=== PATIENT | female | born 1940 | race Caucasian/White ===

== ENCOUNTER 2018-12-17 17:29 | Inpatient (IN) | payer BC | END 2018-12-22 22:15 | disposition other institution (70) | LOC: TELE 12-18 01:23 → TELE-EAST 12-18 04:21 → ER 17:29 | DX: I25.110 Atherosclerotic heart disease of native coronary artery with unstable angina pectoris (principal); J44.9 Chronic obstructive pulmonary disease, unspecified; I10 Essential (primary) hypertension; E11.65 Type 2 diabetes mellitus with hyperglycemia; E11.51 Type 2 diabetes mellitus with diabetic peripheral angiopathy without gangrene ==

== ENCOUNTER 2019-05-10 17:57 | Emergency (ER) | payer BC ==
[~2019-05-10] VITALS: Ht 157.5 cm; Wt 59.0 kg
[~2019-05-10 17:57] MED LIST: GABA100C9 PO; GLIM2TAB33 PO; METF-372 PO
[2019-05-10 19:15] LABS: Basophils # (auto) 0.1 uL; Basophils % (auto) 1.1 % (0.0-2.0); Eosinophils # (auto) 0.8 uL; Eosinophils % (auto) 7.1 % (0.0-7.0); Hematocrit 36.2 % (36.0-46.0); Hemoglobin 12.1 g/dL (12.2-16.2); Lymphocytes # (auto) 2.1 uL; Lymphocytes % (auto) 20.3 % (10.0-50.0); Mean Corpuscular Hemoglobin 31.5 pg (28.0-32.0); Mean Corpuscular Hgb Conc. 33.4 g/dL (32.0-36.0); Mean Corpuscular Volume 94.3 fL (80.0-100.0); Monocytes # (auto) 0.7 uL; Monocytes % (auto) 6.2 % (0.0-12.0); Neutrophils # (auto) 6.9 uL; Neutrophils % (auto) 65.3 % (37.0-80.0); Platelet Count (auto) 316 10^3/uL (140-450); Red Blood Cells 3.84 10^6/uL (4.0-5.20); Red Cell Distribution Width 14.4 % (11.8-14.3); White Blood Cell 10.6 10^3/uL (4.4-10.8)
[2019-05-10 19:21] LABS: Albumin 3.2 g/dL (3.4-5.0); Anion Gap 9 (5-15); Blood Urea Nitrogen 24 mg/dL (7-18); Carbon Dioxide 28 mmol/L (21-32); Chloride 103 mmol/L (98-107); Glucose 135 mg/dL (74-106); Potassium 3.4 mmol/L (3.5-5.1); Sodium 140 mmol/L (136-145)
[2019-05-10 19:23] LABS: Alanine Aminotransferase 12 U/L (13-56); Aspartate Aminotransferase 12 U/L (15-37); BUN/Creatinine Ratio 39.3; GFR African American 122 mL/min; GFR Non-African American 101 mL/min
[2019-05-10 19:28] LABS: Alkaline Phosphatase 71 U/L (45-117); Bilirubin, Total 0.2 mg/dL (0.2-1.0); Total Protein 6.2 g/dL (6.4-8.2)
[2019-05-10 20:32] LABS: Urine Bacteria NONE SEEN /hpf (None Seen); Urine Blood Negative /uL (Negative); Urine Mucus FEW (None Seen); Urine Specific Gravity 1.039 (1.001-1.035); Urine WBC 11 /hpf (0 - 5)
[2019-05-10] MEDS ORDERED: NICOTINE 21MG/24 HR TOPICAL PATCH TD ONE (21:00)
[2019-05-10] MEDS ORDERED: SODIUM CHLORIDE 0.9% 500 ML IV ONE (21:45)
[2019-05-10 23:00] VITALS: BP 115/41
== END 2019-05-11 00:53 | disposition home or self-care (01) ==
LOC: EDBD 17:57 → ER 17:59
DX: N39.0 Urinary tract infection, site not specified (principal); R07.89 Other chest pain; F03.90 Unspecified dementia, unspecified severity, without behavioral disturbance, psychotic disturbance, mood disturbance, and anxiety; F41.9 Anxiety disorder, unspecified; F32.9 Major depressive disorder, single episode, unspecified; E11.9 Type 2 diabetes mellitus without complications; I10 Essential (primary) hypertension; I25.2 Old myocardial infarction; Z90.710 Acquired absence of both cervix and uterus; Z98.61 Coronary angioplasty status; Z88.2 Allergy status to sulfonamides; Z88.6 Allergy status to analgesic agent; Z79.899 Other long term (current) drug therapy
CPT/HCPCS: 36415; 70450; 80053; 81001; 83036; 83605; 84484; 85025; 87086; 93005; 96360; 99284; J7040

== ENCOUNTER 2019-05-16 13:45 | Inpatient (IN) | payer BC ==
[~2019-05-16] VITALS: Ht 162.6 cm; Wt 55.3 kg
[2019-05-16 14:06] LABS: Basophils # (auto) 0.2 uL; Basophils % (auto) 1.5 % (0.0-2.0); Eosinophils # (auto) 1.4 uL; Eosinophils % (auto) 13.1 % (0.0-7.0); Hematocrit 35.5 % (36.0-46.0); Hemoglobin 12.1 g/dL (12.2-16.2); Lymphocytes # (auto) 1.8 uL; Lymphocytes % (auto) 16.3 % (10.0-50.0); Mean Corpuscular Hemoglobin 31.9 pg (28.0-32.0); Mean Corpuscular Hgb Conc. 34.2 g/dL (32.0-36.0); Mean Corpuscular Volume 93.5 fL (80.0-100.0); Monocytes # (auto) 0.7 uL; Monocytes % (auto) 5.9 % (0.0-12.0); Neutrophils # (auto) 6.9 uL; Neutrophils % (auto) 63.2 % (37.0-80.0); Platelet Count (auto) 351 10^3/uL (140-450); Red Blood Cells 3.79 10^6/uL (4.0-5.20); Red Cell Distribution Width 14.1 % (11.8-14.3)
[2019-05-16 14:25] LABS: Albumin 3.3 g/dL (3.4-5.0); Anion Gap 8 (5-15); Calcium 9.2 mg/dL (8.5-10.1); Carbon Dioxide 27 mmol/L (21-32); Chloride 103 mmol/L (98-107); Glucose 118 mg/dL (74-106); Magnesium 1.5 mg/dL (1.6-2.6); Potassium 3.6 mmol/L (3.5-5.1); Sodium 138 mmol/L (136-145)
[2019-05-16 14:34] LABS: Alanine Aminotransferase 13 U/L (13-56); Alkaline Phosphatase 71 U/L (45-117); Aspartate Aminotransferase 13 U/L (15-37); BUN/Creatinine Ratio 31.8; Bilirubin, Total 0.5 mg/dL (0.2-1.0); Blood Urea Nitrogen 21 mg/dL (7-18); GFR African American 112 mL/min; GFR Non-African American 92 mL/min; Total Protein 6.2 g/dL (6.4-8.2)
[2019-05-16] MEDS ORDERED: ASPirin 81 mg TAB PO ONE (15:15)
[2019-05-16 15:32] LABS: Acetaminophen 13.9 ug/mL (10-30); Salicylate 7.3 mg/dL (2.8-20.0)
[2019-05-16] MEDS ORDERED: NICOTINE 21MG/24 HR TOPICAL PATCH TD ONE (16:45)
[2019-05-16] MEDS ORDERED: HYDROcodone-ACET 5/325MG TAB PO PRN (18:30)
[2019-05-16] MEDS ORDERED: LORazepam 2MG/ML-1ML VIAL IV PRN (18:30)
[2019-05-16] MEDS ORDERED: ACETAMINOPHEN 500 MG TAB PO PRN (18:30)
[2019-05-16] MEDS ORDERED: NITROGLYCERIN 0.4 MG SL TAB SL PRN (18:30)
[2019-05-16] MEDS ORDERED: DEXTROSE (50%) 50ML SYRG IV PRN (18:30)
[2019-05-16] MEDS ORDERED: ONDANSETRON HCL 4 MG/2 ML VIAL IV PRN (18:30)
[2019-05-16] MEDS ORDERED: NITROGLYCERIN 0.4MG/HR TOPICAL PATCH TD ONE (18:30)
[2019-05-16] MEDS ORDERED: MORPHINE SULF INJ 2 MG/ML SYRINGE 1ML IV PRN ×2 (18:30)
[2019-05-16] MEDS: MAGNESIUM SULFATE 1GM/100ML 100 ML IV SCH ×2 (20:22→22:30)
[2019-05-16 21:20] VITALS: BP 98/51
--- NOTE | 2019-05-16 21:21 | NUR ---
Telemetry admit from [facility] admitted to Telemetry unit after SBAR received. Patient oriented to Candido simpson RN, unit, room 276, bed A, and unit policies regarding patient care and visiting hours. Patient now on continuous telemetry monitoring, tele box #50 and telemetry reading on arrival to unit is SR 97. Patient VS taken, weighed by bedscale and encouraged to call if they need something. All questions and concerns addressed, patient verbalized understanding.
[2019-05-16] MEDS: METOPROLOL TARTRATE 25 MG TAB PO SCH (22:00)
[2019-05-16] MEDS: ACCU-CHEK COMFORT CURVE STRIP VI SCH (22:08)
[2019-05-16] MEDS: ATORVASTATIN 20 MG TAB PO SCH (22:30)
[2019-05-16] MEDS ORDERED: MAGNESIUM SULFATE 1GM/100ML 100 ML IV SCH (22:30)
[2019-05-16] MEDS: InsuLIN REG 1unit/0.01ml Soln (100units/ml) SC SCH (22:31)
[2019-05-16] MEDS ORDERED: traZODone HCL 50 MG TAB PO ONE (23:00)
--- NOTE | 2019-05-17 01:00 | NUR ---
Received Tele-psych report and recommendations. Patient moved to 285B sitter room.
[2019-05-17] MEDS ORDERED: INFLUENZA QUAD 2019-2020 0.5ml SYRG IM ONE (03:00)
[2019-05-17 05:39] LABS: Urine Bacteria FEW /hpf (None Seen); Urine Blood 1+ /uL (Negative); Urine Specific Gravity 1.008 (1.001-1.035); Urine WBC 10 /hpf (0 - 5)
[2019-05-17 05:44] VITALS: BP 114/47
[2019-05-17 05:59] LABS: Alcohol, Urine < 3.0 mg/dL (0-5); Amphetamine Screen, Urine NEGATIVE (NEGATIVE); Barbiturate Scree,Urine NEGATIVE (NEGATIVE); Benzodiazephine Screen, Urine NEGATIVE (NEGATIVE); Cannabinoid Screen, Urine NEGATIVE (NEGATIVE); Cocaine Screen, Urine NEGATIVE (NEGATIVE); Opiate Scree,Urine NEGATIVE (NEGATIVE); Phencyclidine Screen, Urine NEGATIVE (NEGATIVE)
[2019-05-17] MEDS: InsuLIN REG 1unit/0.01ml Soln (100units/ml) SC SCH ×4 (06:20→21:46)
[2019-05-17] MEDS: ACCU-CHEK COMFORT CURVE STRIP VI SCH ×4 (06:20→21:45)
[2019-05-17] MEDS ORDERED: TRAZ-181 PO (07:00)
[2019-05-17] MEDS ORDERED: CIPR-173 PO (07:00)
[2019-05-17] MEDS ORDERED: MEMA10TA PO (07:00)
[2019-05-17] MEDS ORDERED: ASPI81CH43 PO (07:00)
[2019-05-17] MEDS ORDERED: BUSP15TA60 PO (07:00)
[2019-05-17] MEDS ORDERED: CLOP75TA41 PO (07:00)
[2019-05-17] MEDS ORDERED: METO25TA62 PO (07:00)
[2019-05-17] MEDS ORDERED: ATOR40TA52 PO (07:00)
[2019-05-17 07:39] LABS: Basophils # (auto) 0.2 uL; Basophils % (auto) 2.1 % (0.0-2.0); Eosinophils # (auto) 1.3 uL; Eosinophils % (auto) 13.8 % (0.0-7.0); Hematocrit 33.8 % (36.0-46.0); Hemoglobin 11.4 g/dL (12.2-16.2); Lymphocytes # (auto) 1.2 uL; Lymphocytes % (auto) 12.4 % (10.0-50.0); Mean Corpuscular Hemoglobin 31.9 pg (28.0-32.0); Mean Corpuscular Hgb Conc. 33.7 g/dL (32.0-36.0); Mean Corpuscular Volume 94.6 fL (80.0-100.0); Monocytes # (auto) 0.6 uL; Neutrophils # (auto) 6.4 uL; Neutrophils % (auto) 65.7 % (37.0-80.0); Platelet Count (auto) 312 10^3/uL (140-450); Red Blood Cells 3.58 10^6/uL (4.0-5.20); White Blood Cell 9.7 10^3/uL (4.4-10.8)
[2019-05-17 07:53] LABS: Anion Gap 6 (5-15); BUN/Creatinine Ratio 43.2; Blood Urea Nitrogen 19 mg/dL (7-18); Calcium 8.1 mg/dL (8.5-10.1); Carbon Dioxide 29 mmol/L (21-32); Chloride 103 mmol/L (98-107); GFR African American 178 mL/min; GFR Non-African American 147 mL/min; Glucose 143 mg/dL (74-106); INR 0.97 (0.9-1.15); Partial Thromboplastin Time 24.9 sec (23.64-32.05); Sodium 138 mmol/L (136-145)
--- NOTE | 2019-05-17 07:55 | NUR ---
Opening Shift Note Assumed care of patient, asleep but easily aroused. No S/S of distress/SOB or pain. Instructed on POC and to call for assist PRN, will continue to monitor for changes Q1hr and PRN. Sitter at bedside.
[2019-05-17 08:57] VITALS: BP 129/50
[2019-05-17] MEDS: FAMOTIDINE 20 MG TAB PO SCH (09:33)
[2019-05-17] MEDS: ASPirin 81 mg TAB PO SCH (09:33)
[2019-05-17] MEDS: METOPROLOL TARTRATE 25 MG TAB PO SCH ×2 (10:00→21:46)
[2019-05-17] MEDS ORDERED: NITROGLYCERIN 0.4MG/HR TOPICAL PATCH TD SCH (10:00)
[2019-05-17 13:00] VITALS: BP 141/69
[2019-05-17] MEDS ORDERED: LORazepam 2MG/ML-1ML VIAL IV PRN ×2 (14:30→21:30)
--- NOTE | 2019-05-17 14:50 | NUR ---
MRI Cancelled As per Jose in MRI dept. MRI study cannot be done, patient have spinal stimulator electrodes, so procedure will be cancelled.
[2019-05-17 17:00] VITALS: BP 149/77
[2019-05-17] MEDS: LEVOFLOXACIN 500 MG TAB PO SCH (17:15)
--- NOTE | 2019-05-17 17:35 | NUR ---
Phone call from son Son called inquiring what is happening with his mother as she called him to come pick her up, stating that she is leaving the hospital because she is not doing any surgery. I explained to him that the plan is to transfer the patient to a higher level of care facility for further intervention. Also notified him that the recommendation is in for 5150 hold so we will keep her until she gets transferred to other facility.
--- NOTE | 2019-05-17 17:45 | NUR ---
Agitation Patient states she is going to get dressed and go home, she is not going to do any surgery at her age and she does not need to be in the hospital any longer. Explained to her the 5150 hold and that she still need medical clearance, so we can't allow her to go home. Patient got dressed and took up her personal belongings and began to walk out. [employer] called to the room and MD notified. Will follow up with PRN medication.
--- NOTE | 2019-05-17 17:55 | NUR ---
AMA to Smoke AMA form signed and placed in chart. Patient stated that she has been two days without smoking and the she just need to go get a cigarette, sitter took her downstairs in wheelchair. Will continue to monitor.
--- NOTE | 2019-05-17 18:41 | NUR ---
On Unit Patient returned to unit, no obvious distress at this time.
[2019-05-17] MEDS: SERTRALINE HCL 50 MG TAB PO SCH (18:45)
--- NOTE | 2019-05-17 20:13 | NUR ---
Opening Shift Note Assumed care of patient, awake and alert. No S/S of distress/SOB or pain. Sitter at bedside. Instructed on POC and to call for assist PRN, will continue to monitor for changes Q1hr and PRN.
[2019-05-17] MEDS: MUPIROCIN 2% OINT 15gm or 22gm EACHNOSTRI SCH (21:45)
[2019-05-17] MEDS: ATORVASTATIN 20 MG TAB PO SCH (21:45)
[2019-05-17 22:00] VITALS: BP 121/60
[2019-05-17 23:29] LABS: Folate (Folic Acid) 17.92 ng/mL (5.38-24)
[2019-05-18] VITALS (7 sets, daily range): BP systolic 129–154; BP diastolic 48–82
[2019-05-18] MEDS: ACCU-CHEK COMFORT CURVE STRIP VI SCH ×4 (07:04→22:54)
[2019-05-18] MEDS: InsuLIN REG 1unit/0.01ml Soln (100units/ml) SC SCH ×4 (07:04→22:53)
--- NOTE | 2019-05-18 07:30 | NUR ---
Opening Shift Note Assumed care of patient, awake and alert. No S/S of distress/SOB or pain. Instructed on POC and to call for assist PRN, will continue to monitor for changes Q1hr and PRN.
[2019-05-18] MEDS: ASPirin 81 mg TAB PO SCH (09:43)
[2019-05-18] MEDS: FAMOTIDINE 20 MG TAB PO SCH (09:44)
[2019-05-18] MEDS: METOPROLOL TARTRATE 25 MG TAB PO SCH ×2 (09:46→22:00)
[2019-05-18] MEDS: SERTRALINE HCL 50 MG TAB PO SCH (09:47)
[2019-05-18] MEDS: LEVOFLOXACIN 500 MG TAB PO SCH (09:47)
[2019-05-18] MEDS: LORazepam 0.5 MG TAB PO PRN ×2 (09:52→18:12)
--- NOTE | 2019-05-18 11:36 | NUR ---
FAXED TRANSFER PACKET TO [facility]
--- NOTE | 2019-05-18 13:00 | NUR ---
Received tele psych follow up report. I called the number to get a new copy of the report. The psych doctor determined that the patient no longer meets requirements to be on 5150. will inform the family.
[2019-05-18] MEDS: MUPIROCIN 2% OINT 15gm or 22gm EACHNOSTRI SCH ×2 (13:38→22:53)
--- NOTE | 2019-05-18 14:15 | NUR ---
confirmed patient's social security number with the patient for nalini peng.
--- NOTE | 2019-05-18 14:34 | NUR ---
spoke with the patient's son Sebastián. I informed him that his mother no longer meets criteria to be on 5150 hold and currently we are working on getting her to [facility] for her cardiac procedure.
--- NOTE | 2019-05-18 14:55 | NUR ---
assessment Patient is a 79 year old female who is alert and oriented. Prior to admission patient lived home on the property of her son and functioned independently. Per patient she will return home to her previous living arrangement on discharge. Patient informed me she has a cane and fww for home use. Patients PCP is Dr Acevedo. Patient informed me she has fallen at home due to weakness lately. Patient may benefit from home health for PT on discharge. I informed patient she will be evaluated by physical therapy prior to discharge. I informed patient she has a right to speak to a social media editor regarding all care. I informed patient she has a right to participate in any and all discharge planning. Patient does not have a POA and advanced directive. I have offered patient information on POA and advanced directives. I informed the patient the advantages and benefits of having an Advanced Directive. Patient verbalized understanding and agreed to discharge plan. Addendum: 05/18/19 at 1458 by Karol BALDWIN Amended: Links added.
--- NOTE | 2019-05-18 15:12 | NUR ---
shawnee: awaiting for [facility] at [place] [phone] to call me with shawnee since I left message on her answering machine
--- NOTE | 2019-05-18 15:42 | NUR ---
Spoke to pt's son and let him know that I have faxed to various hospitals and am waiting for an acceptance
--- NOTE | 2019-05-18 15:43 | NUR ---
Faxed transfer packet to [facility], [facility] , [facility] and [facility]. [facility] and [facility] have no beds, [facility] I had to leave message for in house cra to get back to me and [facility] may have bed. I spoke to Sandra at [facility] and she wanted transfer back agreement completed and faxed to her. I completed form and faxed to [phone].
--- NOTE | 2019-05-18 16:11 | NUR ---
[employer] auth for facility is [id number] and for [facility] is [id number]
--- NOTE | 2019-05-18 16:19 | NUR ---
[facility] IS ON WILL CALL
--- NOTE | 2019-05-18 16:21 | NUR ---
agreed to transfer. son is at bedside. patient agrees to stay and go through with the transfer. awaiting the report from the psychiatric doctor. the consult has been completed, but the report is still not available.
[2019-05-18] MEDS ORDERED: CYANOCOBALAMIN (B-12) 1000 MCG/1 ML VIAL IM ONE (19:30)
--- NOTE | 2019-05-18 19:30 | NUR ---
Opening Shift Note Assumed care of patient, awake and alert. No S/S of distress/SOB or pain. Sitter is present at bedside. Instructed on POC and to call for assist PRN, will continue to monitor for changes Q1hr and PRN.
[2019-05-18] MEDS: ATORVASTATIN 20 MG TAB PO SCH (22:53)
[2019-05-19 05:00] VITALS: BP 98/56
[2019-05-19] MEDS: InsuLIN REG 1unit/0.01ml Soln (100units/ml) SC SCH ×3 (06:44→17:55)
[2019-05-19] MEDS: ACCU-CHEK COMFORT CURVE STRIP VI SCH ×3 (06:45→17:55)
--- NOTE | 2019-05-19 06:50 | NUR ---
ASSESSMENT The patient reports that she is having a mild headache and is also feeling anxious. Will treat with PRN medications.
[2019-05-19] MEDS: LORazepam 0.5 MG TAB PO PRN ×3 (06:55→19:38)
--- NOTE | 2019-05-19 07:30 | NUR ---
Opening Shift Note Assumed care of patient, found sleeping while doing morning rounds. Sitter at bedside. No S/S of distress/SOB or pain. Instructed on POC and to call for assist PRN, will continue to monitor for changes Q1hr and PRN.
[2019-05-19 08:00] VITALS: BP 109/35
[2019-05-19 09:00] VITALS: BP 109/95
[2019-05-19] MEDS: MUPIROCIN 2% OINT 15gm or 22gm EACHNOSTRI SCH (09:28)
[2019-05-19] MEDS: ASPirin 81 mg TAB PO SCH (09:29)
[2019-05-19] MEDS: METOPROLOL TARTRATE 25 MG TAB PO SCH (09:29)
[2019-05-19] MEDS: LEVOFLOXACIN 500 MG TAB PO SCH (09:29)
[2019-05-19] MEDS: FAMOTIDINE 20 MG TAB PO SCH (09:30)
[2019-05-19] MEDS: SERTRALINE HCL 50 MG TAB PO SCH (09:30)
[2019-05-19] MEDS ORDERED: CYANOCOBALAMIN 500 MCG TAB PO SCH (10:00)
[2019-05-19 13:30] VITALS: BP 120/50
[2019-05-19 17:00] VITALS: BP 140/55
--- NOTE | 2019-05-19 19:38 | NUR ---
Pt being trans to another hosp Order obtained for transfer of [facility] to [facility]. Report called/given to [facility]. Report given to [facility] transport team. Medication reconciliation form completed and copy given to patient. Transported via [facility] along with copied chart and imaging films/disk and all personal belongings. No distress noted on time of departure. Family notified of destination and room number, verbalized understanding. NOTE: Nurse notified to contact the son when the patient gets there.
== END 2019-05-19 18:51 | disposition short-term general hospital (02) | DRG 303 ==
LOC: EDBD 13:45 → ER 13:47 → TELE 13:48 → TELE-WESTW 20:27
PROVIDERS: ADMIT Nurse Practitioner Acute Care; ATTEND Internal Medicine
DX: I25.10 Atherosclerotic heart disease of native coronary artery without angina pectoris (principal); N39.0 Urinary tract infection, site not specified; R45.851 Suicidal ideations; F41.8 Other specified anxiety disorders; G89.29 Other chronic pain; F32.9 Major depressive disorder, single episode, unspecified; F17.200 Nicotine dependence, unspecified, uncomplicated; E83.42 Hypomagnesemia; I10 Essential (primary) hypertension; J44.9 Chronic obstructive pulmonary disease, unspecified; M41.9 Scoliosis, unspecified; R45.850 Homicidal ideations; Z79.82 Long term (current) use of aspirin; Z79.84 Long term (current) use of oral hypoglycemic drugs; Z79.899 Other long term (current) drug therapy; Z80.0 Family history of malignant neoplasm of digestive organs; Z83.3 Family history of diabetes mellitus; Z90.710 Acquired absence of both cervix and uterus; Z88.5 Allergy status to narcotic agent; M54.9 Dorsalgia, unspecified; E11.51 Type 2 diabetes mellitus with diabetic peripheral angiopathy without gangrene; F41.0 Panic disorder [episodic paroxysmal anxiety]; R07.89 Other chest pain
CPT/HCPCS: 36415; 71045; 80048; 80053; 80307; 80329; 81001; 82607; 82746; 82962; 83036; 83735; 83880; 84443; 84484; 85025; 85610; 85730; 86141; 87081; 93005; 93306; 94761; 97163; G0378; J1815

== ENCOUNTER 2019-12-25 19:46 | Inpatient (IN) | payer BC ==
[~2019-12-25] VITALS: Ht 152.4 cm; Wt 59.6 kg
[~2019-12-25 19:46] MED LIST changes: +ASPI81CH43 PO; +ATOR40TA52 PO; +BUSP15TA60 PO; +CIPR-173 PO; +CLOP75TA41 PO; -GABA100C9 PO; -GLIM2TAB33 PO; +MEMA10TA PO; +METO25TA93 PO; +TRAZ-181 PO
[2019-12-25 20:32] LABS: Basophils # (auto) 0.1 10 ^3/uL (0-0.2); Basophils % (auto) 1.3 % (0.0-2.0); Eosinophils # (auto) 0.4 10 ^3/uL (0-0.8); Lymphocytes # (auto) 1.5 10 ^3/uL (0.4-5.4); Neutrophils # (auto) 5.2 10 ^3/uL (1.6-8.6)
[2019-12-25 20:34] LABS: Eosinophils % (auto) 4.8 % (0.0-7.0); Hematocrit 32.4 % (36.0-46.0); Hemoglobin 10.5 g/dL (12.2-16.2); Lymphocytes % (auto) 18.9 % (10.0-50.0); Mean Corpuscular Hemoglobin 25.7 pg (28.0-32.0); Mean Corpuscular Hgb Conc. 32.3 g/dL (32.0-36.0); Mean Corpuscular Volume 79.5 fL (80.0-100.0); Monocytes # (auto) 0.7 10 ^3/uL (0-1.3); Monocytes % (auto) 9.3 % (0.0-12.0); Neutrophils % (auto) 65.7 % (37.0-80.0); Nucleated Red Blood Cells % 0.1 %; Platelet Count (auto) 356 10^3/uL (140-450); Red Blood Cells 4.08 10^6/uL (4.0-5.20); Red Cell Distribution Width 16.9 % (11.8-14.3)
[2019-12-25 20:44] LABS: INR 1.06 (0.9-1.15); Partial Thromboplastin Time 24.3 sec (23.64-32.05)
[2019-12-25 20:49] LABS: Albumin 2.9 g/dL (3.4-5.0); Anion Gap 7 (5-15); Blood Urea Nitrogen 24 mg/dL (7-18); Calcium 8.4 mg/dL (8.5-10.1); Carbon Dioxide 27 mmol/L (21-32); Chloride 102 mmol/L (98-107); Glucose 163 mg/dL (74-106); Magnesium 2.1 mg/dL (1.6-2.6); Potassium 3.9 mmol/L (3.5-5.1); Sodium 136 mmol/L (136-145)
[2019-12-25 20:54] LABS: Alanine Aminotransferase 19 U/L (13-56); Alkaline Phosphatase 99 U/L (45-117); Aspartate Aminotransferase 15 U/L (15-37); BUN/Creatinine Ratio 35.3; Bilirubin, Total 0.4 mg/dL (0.2-1.0); GFR African American 108 mL/min; GFR Non-African American 89 mL/min; Total Protein 5.9 g/dL (6.4-8.2)
[2019-12-25] MEDS ORDERED: ONDANSETRON HCL 4 MG/2 ML VIAL IV PRN (21:30)
[2019-12-25] MEDS ORDERED: cefTRIAXone 1GM/50ML D5W 50 ML IV ONE (21:30)
[2019-12-25 21:32] LABS: Urine Bacteria FEW /hpf (None Seen); Urine Blood 1+ /uL (Negative); Urine Mucus FEW (None Seen); Urine Specific Gravity 1.027 (1.001-1.035); Urine WBC 62 /hpf (0 - 5); Urine WBC Clumps PRESENT /hpf (None Seen)
[2019-12-25] MEDS ORDERED: ATORVASTATIN 20 MG TAB PO SCH (22:00)
[2019-12-25] MEDS ORDERED: TEMAZEPAM 15 MG CAP PO PRN (22:00)
[2019-12-25] MEDS: SODIUM CHLORIDE 0.9% 1,000 ML IV SCH (22:21)
[2019-12-25] MEDS: ENOXAPARIN SOD 40 MG/0.4 ML SYRINGE SC SCH (22:21)
[2019-12-25] MEDS: MEMANTINE HCL 5 MG TAB PO SCH (22:22)
[2019-12-25] MEDS: FAMOTIDINE 20 MG TAB PO SCH (22:22)
[2019-12-25 22:50] VITALS: BP 114/56
[2019-12-26] VITALS (7 sets, daily range): BP systolic 101–136; BP diastolic 50–68
[2019-12-26] MEDS ORDERED: LOPERAMIDE HCL 2 MG CAP PO PRN (00:30)
[2019-12-26] MEDS ORDERED: DONE5TAB11 PO (08:29)
[2019-12-26] MEDS ORDERED: RISP0.5T45 PO (08:29)
[2019-12-26 08:59] LABS: Basophils # (auto) 0.1 10 ^3/uL (0-0.2); Eosinophils # (auto) 0.4 10 ^3/uL (0-0.8); Eosinophils % (auto) 5.4 % (0.0-7.0); Hemoglobin 10.7 g/dL (12.2-16.2); Lymphocytes # (auto) 1.1 10 ^3/uL (0.4-5.4)
[2019-12-26 09:03] LABS: Basophils % (auto) 1.3 % (0.0-2.0); Hematocrit 32.8 % (36.0-46.0); Lymphocytes % (auto) 14.1 % (10.0-50.0); Mean Corpuscular Hemoglobin 25.8 pg (28.0-32.0); Mean Corpuscular Hgb Conc. 32.5 g/dL (32.0-36.0); Mean Corpuscular Volume 79.5 fL (80.0-100.0); Monocytes # (auto) 0.6 10 ^3/uL (0-1.3); Neutrophils # (auto) 5.3 10 ^3/uL (1.6-8.6); Neutrophils % (auto) 71.2 % (37.0-80.0); Nucleated Red Blood Cells % 0.1 %; Platelet Count (auto) 351 10^3/uL (140-450); Red Blood Cells 4.13 10^6/uL (4.0-5.20); Red Cell Distribution Width 16.5 % (11.8-14.3); White Blood Cell 7.5 10^3/uL (4.4-10.8)
[2019-12-26 09:16] LABS: BUN/Creatinine Ratio 33.3; Calcium 8.2 mg/dL (8.5-10.1); Potassium 3.8 mmol/L (3.5-5.1)
[2019-12-26] MEDS ORDERED: ASPirin 81 mg TAB PO SCH (10:00)
[2019-12-26] MEDS ORDERED: CLOPIDOGREL BISULFATE 75 MG TAB PO SCH (10:00)
[2019-12-26] MEDS: cefTRIAXone 1GM/50ML D5W 50 ML IV SCH (10:56)
[2019-12-26] MEDS: FAMOTIDINE 20 MG TAB PO SCH (10:57)
[2019-12-26] MEDS: MEMANTINE HCL 5 MG TAB PO SCH ×2 (10:58→22:00)
[2019-12-26] MEDS: SODIUM CHLORIDE 0.9% 1,000 ML IV SCH (11:01)
[2019-12-26] MEDS ORDERED: RISP0.5T12 PO (15:20)
[2019-12-26] MEDS ORDERED: BUSP30TA11 PO (15:20)
[2019-12-26] MEDS ORDERED: TRAZ100T3 PO (15:20)
[2019-12-26] MEDS ORDERED: MET25T PO (15:20)
[2019-12-26] MEDS ORDERED: traZODone HCL 50 MG TAB PO PRN (15:30)
[2019-12-26] MEDS: ENOXAPARIN SOD 40 MG/0.4 ML SYRINGE SC SCH (17:11)
[2019-12-26] MEDS: NICOTINE 14 MG/24HR TOPICAL PATCH TD SCH (17:11)
[2019-12-26] MEDS: RISPERIDONE 0.5 MG PO SCH (22:00)
[2019-12-26] MEDS ORDERED: DONEPEZIL HYDROCHLORIDE 5 MG TAB PO SCH (22:00)
[2019-12-26] MEDS: busPIRone HCL 10 MG TAB PO SCH (22:00)
[2019-12-26] MEDS: ASPirin 81 mg TAB PO SCH (22:00)
[2019-12-26] MEDS ORDERED: MEMANTINE HYDROCHLORIDE PO SCH (22:00)
[2019-12-27] MEDS: SODIUM CHLORIDE 0.9% 1,000 ML IV SCH ×2 (00:10→13:30)
[2019-12-27] MEDS: ACETAMINOPHEN 325 MG TAB PO PRN (04:18)
[2019-12-27 05:00] VITALS: BP 124/41
[2019-12-27 06:06] LABS: Basophils # (auto) 0.1 10 ^3/uL (0-0.2); Hemoglobin 10.8 g/dL (12.2-16.2); Lymphocytes # (auto) 0.9 10 ^3/uL (0.4-5.4); Mean Corpuscular Hgb Conc. 32.3 g/dL (32.0-36.0); Monocytes # (auto) 0.8 10 ^3/uL (0-1.3); Monocytes % (auto) 12.2 % (0.0-12.0); White Blood Cell 6.7 10^3/uL (4.4-10.8)
[2019-12-27 06:08] LABS: Basophils % (auto) 1.3 % (0.0-2.0); Eosinophils # (auto) 0.4 10 ^3/uL (0-0.8); Eosinophils % (auto) 5.7 % (0.0-7.0); Hematocrit 33.4 % (36.0-46.0); Lymphocytes % (auto) 13.3 % (10.0-50.0); Mean Corpuscular Hemoglobin 26.3 pg (28.0-32.0); Mean Corpuscular Volume 81.5 fL (80.0-100.0); Neutrophils # (auto) 4.5 10 ^3/uL (1.6-8.6); Neutrophils % (auto) 67.5 % (37.0-80.0); Platelet Count (auto) 315 10^3/uL (140-450); Red Cell Distribution Width 16.6 % (11.8-14.3)
[2019-12-27 06:16] LABS: Potassium 3.6 mmol/L (3.5-5.1)
[2019-12-27 06:27] LABS: BUN/Creatinine Ratio 34.1; Calcium 8.1 mg/dL (8.5-10.1); Magnesium 2.3 mg/dL (1.6-2.6)
[2019-12-27] MEDS: busPIRone HCL 10 MG TAB PO SCH ×3 (06:28→21:36)
[2019-12-27 09:00] VITALS: BP_SYST 121; BP_SYST 127; BP_DIAS 52; BP_DIAS 83
[2019-12-27] MEDS: cefTRIAXone 1GM/50ML D5W 50 ML IV SCH (09:44)
[2019-12-27] MEDS: MEMANTINE HCL 5 MG TAB PO SCH (09:46)
[2019-12-27] MEDS: FAMOTIDINE 20 MG TAB PO SCH (09:46)
[2019-12-27] MEDS: ASPirin 81 mg TAB PO SCH ×2 (09:46→21:36)
[2019-12-27] MEDS: NICOTINE 14 MG/24HR TOPICAL PATCH TD SCH (09:46)
[2019-12-27] MEDS: METOPROLOL TARTRATE 25 MG TAB PO SCH (09:48)
[2019-12-27] MEDS: ATORVASTATIN 20 MG TAB PO SCH (09:48)
[2019-12-27] MEDS: CLOPIDOGREL BISULFATE 75 MG TAB PO SCH (09:48)
[2019-12-27] MEDS: RISPERIDONE 0.5 MG PO SCH ×2 (10:00→21:43)
[2019-12-27 13:00] VITALS: BP 132/46
[2019-12-27 16:42] VITALS: BP 130/46
[2019-12-27] MEDS: ENOXAPARIN SOD 40 MG/0.4 ML SYRINGE SC SCH (18:45)
[2019-12-27 22:00] VITALS: BP 128/60
[2019-12-28] MEDS: SODIUM CHLORIDE 0.9% 1,000 ML IV SCH ×2 (02:50→16:10)
[2019-12-28 05:00] VITALS: BP 132/58
[2019-12-28] MEDS: busPIRone HCL 10 MG TAB PO SCH ×2 (05:54→14:30)
[2019-12-28 09:00] VITALS: BP 132/59
[2019-12-28] MEDS: ATORVASTATIN 20 MG TAB PO SCH (09:38)
[2019-12-28] MEDS: cefTRIAXone 1GM/50ML D5W 50 ML IV SCH (09:38)
[2019-12-28] MEDS: MEMANTINE HCL 5 MG TAB PO SCH (09:39)
[2019-12-28] MEDS: FAMOTIDINE 20 MG TAB PO SCH (09:39)
[2019-12-28] MEDS: ASPirin 81 mg TAB PO SCH (09:40)
[2019-12-28] MEDS: METOPROLOL TARTRATE 25 MG TAB PO SCH (09:40)
[2019-12-28] MEDS: CLOPIDOGREL BISULFATE 75 MG TAB PO SCH (09:40)
[2019-12-28] MEDS: NICOTINE 14 MG/24HR TOPICAL PATCH TD SCH (09:46)
[2019-12-28] MEDS: RISPERIDONE 0.5 MG PO SCH (10:00)
[2019-12-28 13:00] VITALS: BP 144/75
[2019-12-28] MEDS: ACETAMINOPHEN 325 MG TAB PO PRN (13:00)
[2019-12-28 13:50] VITALS: BP 144/75
[2019-12-28 16:37] VITALS: BP 111/49
== END 2019-12-28 17:10 | disposition home health service (06) | DRG 689 ==
LOC: EDBD 19:46 → ER 19:46 → WEST WING 19:47 → OVERFLOW 19:47 → UNDOADMIN 19:47 → WEST WING 21:59 → OVERFLOW 21:59
PROVIDERS: ADMIT Nurse Practitioner; ATTEND Internal Medicine
DX: N39.0 Urinary tract infection, site not specified (principal); G93.41 Metabolic encephalopathy; G30.9 Alzheimer's disease, unspecified; I10 Essential (primary) hypertension; E78.5 Hyperlipidemia, unspecified; F02.80 Dementia in other diseases classified elsewhere, unspecified severity, without behavioral disturbance, psychotic disturbance, mood disturbance, and anxiety; F41.9 Anxiety disorder, unspecified; E11.51 Type 2 diabetes mellitus with diabetic peripheral angiopathy without gangrene; F17.210 Nicotine dependence, cigarettes, uncomplicated; I25.10 Atherosclerotic heart disease of native coronary artery without angina pectoris; J44.9 Chronic obstructive pulmonary disease, unspecified; Z79.82 Long term (current) use of aspirin; Z80.0 Family history of malignant neoplasm of digestive organs; Z82.49 Family history of ischemic heart disease and other diseases of the circulatory system; Z83.3 Family history of diabetes mellitus; Z90.710 Acquired absence of both cervix and uterus; Z71.6 Tobacco abuse counseling
CPT/HCPCS: 36415; 70450; 71045; 80048; 80053; 80320; 81001; 82607; 83735; 84484; 85025; 85610; 85730; 87040; 87086; 93005; 96374; 99291; G0378; J0696

== ENCOUNTER 2020-02-22 14:00 | Inpatient (IN) | payer BC ==
[~2020-02-22] VITALS: Ht 157.5 cm; Wt 58.1 kg
[~2020-02-22 14:00] MED LIST changes: -BUSP15TA60 PO; +BUSP30TA11 PO; -CIPR-173 PO; -MEMA10TA PO; +MET25T PO; -METO25TA93 PO; +RISP0.5T12 PO; -TRAZ-181 PO; +TRAZ100T3 PO
[2020-02-22] MEDS ORDERED: SODIUM CHLORIDE 0.9% 500 ML IV ONE (14:08)
[2020-02-22 14:49] LABS: Basophils # (auto) 0.1 10 ^3/uL (0-0.2); Eosinophils # (auto) 0.2 10 ^3/uL (0-0.8); Lymphocytes # (auto) 1.6 10 ^3/uL (0.4-5.4); Monocytes # (auto) 0.7 10 ^3/uL (0-1.3); Nucleated Red Blood Cells % 0.1 %
[2020-02-22 14:50] LABS: Basophils % (auto) 1.1 % (0.0-2.0); Eosinophils % (auto) 2.4 % (0.0-7.0); Hemoglobin 10.8 g/dL (12.2-16.2); Lymphocytes % (auto) 18.1 % (10.0-50.0); Mean Corpuscular Hemoglobin 26.3 pg (28.0-32.0); Mean Corpuscular Hgb Conc. 32.7 g/dL (32.0-36.0); Mean Corpuscular Volume 80.5 fL (80.0-100.0); Monocytes % (auto) 8.4 % (0.0-12.0); Platelet Count (auto) 332 10^3/uL (140-450); Red Cell Distribution Width 17.3 % (11.8-14.3); White Blood Cell 8.6 10^3/uL (4.4-10.8)
[2020-02-22 15:09] LABS: Anion Gap 9 (5-15); BUN/Creatinine Ratio 30.3; Blood Urea Nitrogen 23 mg/dL (7-18); Carbon Dioxide 25 mmol/L (21-32); Chloride 104 mmol/L (98-107); GFR African American 95 mL/min; GFR Non-African American 78 mL/min; Glucose 148 mg/dL (74-106); Potassium 3.6 mmol/L (3.5-5.1); Sodium 138 mmol/L (136-145)
[2020-02-22 15:14] LABS: Alanine Aminotransferase 34 U/L (13-56); Alkaline Phosphatase 154 U/L (45-117); Aspartate Aminotransferase 22 U/L (15-37); Bilirubin, Total 0.6 mg/dL (0.2-1.0); Total Protein 6.6 g/dL (6.4-8.2)
[2020-02-22] MEDS ORDERED: DEXTROSE (50%) 50ML SYRG IV PRN (16:15)
[2020-02-22] MEDS ORDERED: ONDANSETRON HCL 4 MG/2 ML VIAL IV PRN (16:15)
[2020-02-22] MEDS ORDERED: cefTRIAXone 1GM/50ML D5W 50 ML IV ONE (16:45)
[2020-02-22] MEDS ORDERED: DOCUSATE SOD 100 MG CAP PO PRN (16:45)
--- NOTE | 2020-02-22 16:45 | NUR ---
MS admit from ER [facility] admitted to tele/MS after SBAR received. Patient oriented to ELI YOON, primary RN, unit, room, bed, and unit policies regarding patient care and visiting hours. Patient weighed by bedscale and encouraged to call if they need something. All questions and concerns addressed, patient verbalized understanding. Note:
[2020-02-22] MEDS: ACCU-CHEK COMFORT CURVE STRIP VI SCH ×2 (17:49→21:00)
[2020-02-22] MEDS: InsuLIN REG 1unit/0.01ml Soln (100units/ml) SC SCH ×2 (17:52→21:12)
--- NOTE | 2020-02-22 17:53 | NUR ---
Photos taken to right thigh and left thigh prior admission.
[2020-02-22] MEDS ORDERED: CRAN500C2 PO (17:56)
[2020-02-22] MEDS ORDERED: METO-158 PO (17:56)
[2020-02-22] MEDS ORDERED: SILV1CRE82 TOP (17:56)
[2020-02-22] MEDS ORDERED: MEM5T PO (17:58)
[2020-02-22] MEDS ORDERED: DONE10TA40 PO (17:58)
--- NOTE | 2020-02-22 18:20 | NUR ---
PATIENT TRY TO GET OUT OF THE BED AND REFUSED TO BE IN BED, SHE STATED WANTS TO STAND AT THE BEDSIDE. INFORMED CN, PROVIDE A SITTER AT BEDSIDE. BED ALARM ON, PLACE A CALL LIGHT WITHIN REACH, WILL CONTINUE TO MONITOR.
--- NOTE | 2020-02-22 18:37 | NUR ---
UA SENT TO LAB.
[2020-02-22 18:51] VITALS: BP 123/69
[2020-02-22 18:53] LABS: Urine Bacteria NONE SEEN /hpf (None Seen); Urine Blood 1+ /uL (Negative); Urine Hyaline Cast FEW /lpf (0 - 2); Urine Specific Gravity 1.022 (1.001-1.035); Urine WBC 24 /hpf (0 - 5)
--- NOTE | 2020-02-22 19:30 | NUR ---
Opening Shift Note Assumed care of patient, awake and alert. No S/S of distress/SOB or pain. Insructed on POC and to callfor assist PRN, will continue to monitor for changes Q1hr and PRN. Fall and safety precautions in place. Call light within reach. fountain attendant at bedside for patient safety.
[2020-02-22] MEDS: MEMANTINE HCL 5 MG TAB PO SCH (21:00)
[2020-02-22] MEDS: DONEPEZIL HYDROCHLORIDE 5 MG TAB PO SCH (21:00)
[2020-02-22 22:00] VITALS: BP 118/62
[2020-02-22] MEDS ORDERED: traZODone HCL 50 MG TAB PO SCH (22:00)
[2020-02-23 05:00] VITALS: BP 127/62
[2020-02-23] MEDS: InsuLIN REG 1unit/0.01ml Soln (100units/ml) SC SCH ×4 (06:43→22:00)
[2020-02-23] MEDS: ACCU-CHEK COMFORT CURVE STRIP VI SCH ×4 (06:43→22:00)
[2020-02-23 08:49] LABS: Basophils # (auto) 0.1 10 ^3/uL (0-0.2); Eosinophils # (auto) 0.2 10 ^3/uL (0-0.8); Hematocrit 35.7 % (36.0-46.0); Hemoglobin 11.6 g/dL (12.2-16.2); Mean Corpuscular Hemoglobin 26.2 pg (28.0-32.0); Mean Corpuscular Hgb Conc. 32.5 g/dL (32.0-36.0); White Blood Cell 7.7 10^3/uL (4.4-10.8)
[2020-02-23 08:50] LABS: Basophils % (auto) 1.3 % (0.0-2.0); Eosinophils % (auto) 2.3 % (0.0-7.0); Lymphocytes % (auto) 12.7 % (10.0-50.0); Mean Corpuscular Volume 80.7 fL (80.0-100.0); Monocytes # (auto) 0.5 10 ^3/uL (0-1.3); Monocytes % (auto) 5.9 % (0.0-12.0); Neutrophils % (auto) 77.8 % (37.0-80.0); Nucleated Red Blood Cells % 0.1 %; Platelet Count (auto) 337 10^3/uL (140-450); Red Blood Cells 4.43 10^6/uL (4.0-5.20); Red Cell Distribution Width 17.7 % (11.8-14.3)
[2020-02-23 08:58] LABS: Albumin 3.2 g/dL (3.4-5.0); Calcium 9.3 mg/dL (8.5-10.1); Potassium 3.3 mmol/L (3.5-5.1)
[2020-02-23 09:00] VITALS: BP 119/54
[2020-02-23 09:02] LABS: BUN/Creatinine Ratio 25.4; Bilirubin, Total 0.7 mg/dL (0.2-1.0)
[2020-02-23] MEDS: ENOXAPARIN SOD 30 MG/0.3 ML SYRINGE SC SCH (09:32)
[2020-02-23] MEDS: MEMANTINE HCL 5 MG TAB PO SCH ×2 (09:32→22:35)
[2020-02-23] MEDS: METOPROLOL SUCCINATE XL 50 MG TAB PO SCH (09:33)
[2020-02-23] MEDS: cefTRIAXone 1GM/50ML D5W 50 ML IV SCH (09:33)
[2020-02-23] MEDS: ACETAMINOPHEN 500 MG TAB PO PRN (10:08)
--- NOTE | 2020-02-23 10:37 | NUR ---
Hospitalist Paged Patient is very agitated, climbing out of bed and stating that she is going home. She asked to call the doctor so she can go home, she doesn't want to stay another minute.
--- NOTE | 2020-02-23 10:55 | NUR ---
Hospitalist returned call Received call from Dr. Ramón Casas, orders received, read back, verified and entered in eMAR.
[2020-02-23] MEDS: busPIRone HCL 10 MG TAB PO SCH ×2 (11:38→22:35)
[2020-02-23] MEDS: SODIUM CHLORIDE 0.9% 1,000 ML IV SCH (11:40)
[2020-02-23 13:00] VITALS: BP 119/51
[2020-02-23 17:00] VITALS: BP 137/87
--- NOTE | 2020-02-23 19:25 | NUR ---
Opening Shift Note Received report from Zohra REVELES. Assumed care of patient, awake and alert, sitter at bedside. No S/S of distress/SOB or pain. Instructed on POC and to call for assist PRN. Fall precaution measures in place, will continue to monitor for changes Q1hr and PRN.
[2020-02-23] MEDS ORDERED: POTASSIUM CHL 20MEQ/100ML 100 ML IV ONE (20:45)
[2020-02-23] MEDS ORDERED: POTASSIUM CHL 20 Meq TABLET PO ONE (20:45)
[2020-02-23 21:42] VITALS: BP 103/47
[2020-02-23] MEDS: INSULIN LANTUS (GLARGINE) 1 /0.01ml (100units/ml) SC SCH (22:00)
[2020-02-23] MEDS: DONEPEZIL HYDROCHLORIDE 5 MG TAB PO SCH (22:35)
[2020-02-24] MEDS: SODIUM CHLORIDE 0.9% 1,000 ML IV SCH ×2 (00:40→13:41)
[2020-02-24] MEDS: ACETAMINOPHEN 500 MG TAB PO PRN ×3 (00:40→20:40)
--- NOTE | 2020-02-24 00:40 | NUR ---
Patient complains of headache, Tylenol PO given. Continue care.
--- NOTE | 2020-02-24 02:00 | NUR ---
Headache resolved, will continue care.
[2020-02-24 04:33] VITALS: BP 125/50
[2020-02-24] MEDS: busPIRone HCL 10 MG TAB PO SCH ×3 (06:08→21:46)
[2020-02-24] MEDS: InsuLIN REG 1unit/0.01ml Soln (100units/ml) SC SCH ×4 (06:21→21:47)
[2020-02-24] MEDS: ACCU-CHEK COMFORT CURVE STRIP VI SCH ×4 (06:21→21:47)
[2020-02-24 09:00] VITALS: BP 125/66
[2020-02-24] MEDS: cefTRIAXone 1GM/50ML D5W 50 ML IV SCH (09:15)
[2020-02-24] MEDS: MEMANTINE HCL 5 MG TAB PO SCH ×2 (09:16→21:47)
[2020-02-24] MEDS: ENOXAPARIN SOD 30 MG/0.3 ML SYRINGE SC SCH (09:16)
[2020-02-24] MEDS: METOPROLOL SUCCINATE XL 50 MG TAB PO SCH (09:19)
--- NOTE | 2020-02-24 11:20 | NUR ---
PT Patient ambulating on unit with physical therapist.
[2020-02-24 13:00] VITALS: BP 122/65
--- NOTE | 2020-02-24 14:15 | NUR ---
Social Service consult Paged radiation therapist social worker assistant regarding consult.
--- NOTE | 2020-02-24 14:28 | NUR ---
Home Safety Evaluation Spoke with patient's son (Sebastián) and he agrees with home safety evaluation for patient.
[2020-02-24 16:12] VITALS: BP 126/65
--- NOTE | 2020-02-24 16:25 | NUR ---
Hospitalist Rounded Dr. Ramón Casas in to see patient.
--- NOTE | 2020-02-24 16:32 | NUR ---
Physical Therapy As per Blaise, patient can be discharged home, she ambulated very well with PT.
--- NOTE | 2020-02-24 16:50 | NUR ---
Phone call with family member Spoke with patient's son (Sebastián) and he will be available to transport his mother home upon discharge.
[2020-02-24] MEDS ORDERED: levoFLOXacin 500 MG TAB PO ONE (17:45)
[2020-02-24 18:32] LABS: BUN/Creatinine Ratio 21.7; Calcium 8.9 mg/dL (8.5-10.1); Potassium 4.3 mmol/L (3.5-5.1)
--- NOTE | 2020-02-24 18:55 | NUR ---
BMP results Dr. Casas notified of BMP results as per communication order.
--- NOTE | 2020-02-24 19:00 | NUR ---
Urine Culture Spoke with microbiology regarding final urine culture report. Was informed that final results are not yet available and may be available tomorrow 02/25/20.
--- NOTE | 2020-02-24 19:20 | NUR ---
Opening Shift Note Received report from Zohra REVELES. Assumed care of patient, awake and alert. Sitter at bedside. No S/S of distress/SOB or pain. Instructed on POC and to call for assist PRN. Fall precaution measures in place, will continue to monitor for changes Q1hr and PRN.
[2020-02-24 21:45] VITALS: BP 110/49
[2020-02-24] MEDS: DONEPEZIL HYDROCHLORIDE 5 MG TAB PO SCH (21:47)
[2020-02-24] MEDS: INSULIN LANTUS (GLARGINE) 1 /0.01ml (100units/ml) SC SCH (22:00)
[2020-02-25] MEDS: SODIUM CHLORIDE 0.9% 1,000 ML IV SCH ×2 (03:30→16:35)
[2020-02-25 05:01] VITALS: BP 121/83
[2020-02-25] MEDS: ACETAMINOPHEN 500 MG TAB PO PRN (05:27)
[2020-02-25] MEDS: busPIRone HCL 10 MG TAB PO SCH ×2 (05:28→16:45)
--- NOTE | 2020-02-25 06:16 | NUR ---
Call to Laboratory, spoke to Fern powell final report for urine culture. Per Fern call back at 8am when Microbiology staff are in.
[2020-02-25] MEDS: InsuLIN REG 1unit/0.01ml Soln (100units/ml) SC SCH ×3 (07:00→17:00)
[2020-02-25] MEDS: ACCU-CHEK COMFORT CURVE STRIP VI SCH ×3 (07:00→17:00)
--- NOTE | 2020-02-25 07:30 | NUR ---
Opening Shift Note Assuming care of patient at this time. Patient is awake and alert. Patient denies pain. Patient shows no signs or symptoms of distress or shortness of breath. Bed is locked and lowered with side rails up x2. Instructed patient on the plan of care for today and to call for assistance as needed. Call light within reach. Will continue to round hourly and as needed.
--- NOTE | 2020-02-25 08:30 | NUR ---
Call to Microbiology Call to microbiology at this time regarding patient's urine culture results. Per Fabio, in microbiology, urine culture is not showing up in system. Gave Fabio in microbiology, contact information for this RN. Another nurse technician will check on results and notify this RN. Awaiting callback.
--- NOTE | 2020-02-25 09:00 | NUR ---
Call from Microbiology Call from microbiology at this time. Urine culture report is finalized. Patient has gram positive cary in urine. Will notify
--- NOTE | 2020-02-25 09:04 | NUR ---
Call to Dr. Casas Call to Dr. Ramón Casas at this time regarding patient's urine culture. Awaiting callback.
[2020-02-25 09:06] VITALS: BP 141/72
[2020-02-25] MEDS: cefTRIAXone 1GM/50ML D5W 50 ML IV SCH (09:12)
[2020-02-25] MEDS: MEMANTINE HCL 5 MG TAB PO SCH (09:15)
[2020-02-25] MEDS: METOPROLOL SUCCINATE XL 50 MG TAB PO SCH (09:18)
[2020-02-25] MEDS: ENOXAPARIN SOD 30 MG/0.3 ML SYRINGE SC SCH (09:19)
[2020-02-25] MEDS ORDERED: SULFAMETHOX W/TRIMETH(800/160MG) DS TAB PO ONE (09:45)
--- NOTE | 2020-02-25 11:11 | NUR ---
Assessment Patient is a 79-year-old female. Assessment was completed with patient son Sebastián . Per Sebastián prior to admission patient live home with him and functioned independently. Per Sebastián patient can care for her own ADLs. Per Sebastián patient has a walker and cane for home use. Per Sebastián patient does not have any other medical equipment. Per Sebastián patient will return to her prior living arrangement post discharge and he will transport patient home. Advised Sebastián there is a social service consult for home health safety evaluation. Informed Sebastián clinical information will be faxed to contracted agency with health plan. Informed Sebastián he has the right to participate in all discharge planning. Sebastián verbalized understanding and agreed to discharge plan home. Faxed clinical information to [facility]. Per Jonelle with [facility] Ph:( [phone]) patient has been accepted and they will see patient within 24-48hrs upon d/c day. Informed ABDIRIZAK Martinez. Addendum: 02/25/20 at 1113 by BERTHA BALDWIN Amended: Links added.
[2020-02-25 12:38] VITALS: BP 122/58
[2020-02-25] MEDS ORDERED: LEVO500T21 PO (16:37)
[2020-02-25] MEDS ORDERED: levoFLOXacin 500 MG TAB PO ONE (16:45)
[2020-02-25 16:59] VITALS: BP 139/75
[2020-02-25 17:22] VITALS: BP 139/75
--- NOTE | 2020-02-25 18:53 | NUR ---
Discharge Discharge instructions given as ordered. Encourage to follow up with PMD as instructed. All questions and concerns addressed. Patient verbalized understanding. Medication reconciliation form completed and copy given to patient. IV removed with catheter intact, pressure dressing applied. Patient taken to vehicle via wheelchair with all personal belongings, accompanied by staff and son in lobby. No distress noted at time of departure.
== END 2020-02-25 18:50 | disposition home health service (06) | DRG 71 ==
LOC: EDBD 14:00 → ER 14:00 → WEST WING 14:01
PROVIDERS: ADMIT Nurse Practitioner Family; ATTEND Internal Medicine
DX: G93.41 Metabolic encephalopathy (principal); N39.0 Urinary tract infection, site not specified; F32.9 Major depressive disorder, single episode, unspecified; E87.6 Hypokalemia; F03.90 Unspecified dementia, unspecified severity, without behavioral disturbance, psychotic disturbance, mood disturbance, and anxiety; E11.9 Type 2 diabetes mellitus without complications; I50.9 Heart failure, unspecified; F41.9 Anxiety disorder, unspecified; I11.0 Hypertensive heart disease with heart failure; D63.8 Anemia in other chronic diseases classified elsewhere; Z79.02 Long term (current) use of antithrombotics/antiplatelets; Z79.82 Long term (current) use of aspirin; Z90.710 Acquired absence of both cervix and uterus; Z79.84 Long term (current) use of oral hypoglycemic drugs; Z79.899 Other long term (current) drug therapy
CPT/HCPCS: 36415; 70450; 71045; 80048; 80053; 81001; 82962; 84484; 85025; 87040; 87086; 93005; 97163; 97530; G0378; J0696; J1815; J3480

== ENCOUNTER 2020-02-27 16:16 | Inpatient (IN) | payer BC ==
[~2020-02-27] VITALS: Ht 152.4 cm; Wt 61.2 kg
[~2020-02-27 16:16] MED LIST changes: +CRAN500C2 PO; +DONE10TA40 PO; +LEVO500T21 PO; +MEM5T PO; -MET25T PO; +METO-158 PO; +SILV1CRE82 TOP
[2020-02-27 16:55] LABS: Basophils # (auto) 0.1 10 ^3/uL (0-0.2); Eosinophils # (auto) 0.1 10 ^3/uL (0-0.8); Lymphocytes # (auto) 1.5 10 ^3/uL (0.4-5.4); Neutrophils # (auto) 5.5 10 ^3/uL (1.6-8.6); Red Cell Distribution Width 18.5 % (11.8-14.3)
[2020-02-27 16:57] LABS: Eosinophils % (auto) 1.7 % (0.0-7.0); Hematocrit 32.7 % (36.0-46.0); Hemoglobin 10.8 g/dL (12.2-16.2); Lymphocytes % (auto) 19.1 % (10.0-50.0); Mean Corpuscular Hemoglobin 26.6 pg (28.0-32.0); Mean Corpuscular Hgb Conc. 32.9 g/dL (32.0-36.0); Mean Corpuscular Volume 80.7 fL (80.0-100.0); Monocytes # (auto) 0.6 10 ^3/uL (0-1.3); Monocytes % (auto) 8.1 % (0.0-12.0); Neutrophils % (auto) 70.1 % (37.0-80.0); Platelet Count (auto) 332 10^3/uL (140-450); Red Blood Cells 4.06 10^6/uL (4.0-5.20); White Blood Cell 7.9 10^3/uL (4.4-10.8)
[2020-02-27 17:09] LABS: BUN/Creatinine Ratio 25.9; Calcium 9.5 mg/dL (8.5-10.1); Potassium 3.8 mmol/L (3.5-5.1)
[2020-02-27 17:13] LABS: Bilirubin, Total 0.4 mg/dL (0.2-1.0); Total Protein 6.6 g/dL (6.4-8.2)
[2020-02-27 17:31] LABS: Urine Bacteria NONE SEEN /hpf (None Seen); Urine Blood 1+ /uL (Negative); Urine Hyaline Cast FEW /lpf (0 - 2); Urine Mucus FEW (None Seen); Urine Specific Gravity 1.027 (1.001-1.035); Urine WBC 19 /hpf (0 - 5)
[2020-02-27] MEDS ORDERED: SODIUM CHLORIDE 0.9% 1,000 ML IVB ONE (17:41)
[2020-02-27] MEDS ORDERED: cefTRIAXone 1GM/50ML D5W 50 ML IV ONE (17:45)
[2020-02-27] MEDS ORDERED: DEXTROSE (50%) 50ML SYRG IV PRN (20:15)
[2020-02-27] MEDS ORDERED: NITROGLYCERIN 0.4 MG SL TAB SL PRN (20:15)
[2020-02-27] MEDS ORDERED: MORPHINE SULF INJ 2 MG/ML SYRINGE 1ML IV PRN (20:15)
[2020-02-27] MEDS: InsuLIN REG 1unit/0.01ml Soln (100units/ml) SC SCH (21:48)
[2020-02-27] MEDS: ACCU-CHEK COMFORT CURVE STRIP VI SCH (21:48)
[2020-02-28] MEDS: SOD CHL 0.45% 1,000 ML IV SCH ×2 (04:07→11:22)
[2020-02-28] MEDS ORDERED: ALUM & MAG HYDROX-SIMETH LIQ(MAALOX) 30 ML PO PRN (04:15)
[2020-02-28] MEDS ORDERED: DOCUSATE SOD 100 MG CAP PO PRN (04:15)
[2020-02-28] MEDS ORDERED: LORazepam 0.5 MG TAB PO PRN (04:15)
[2020-02-28] MEDS ORDERED: MORPHINE SULF INJ 2 MG/ML SYRINGE 1ML IV PRN ×2 (04:15)
[2020-02-28] MEDS ORDERED: NITROGLYCERIN 0.4 MG SL TAB SL PRN (04:15)
[2020-02-28] MEDS: InsuLIN REG 1unit/0.01ml Soln (100units/ml) SC SCH ×4 (07:00→23:00)
[2020-02-28] MEDS: ACCU-CHEK COMFORT CURVE STRIP VI SCH ×4 (07:12→23:01)
[2020-02-28] MEDS: ONDANSETRON HCL 4 MG/2 ML VIAL IV PRN ×2 (07:43→08:35)
[2020-02-28] MEDS ORDERED: cefTRIAXone 1GM/50ML D5W 50 ML IV ONE (09:09)
[2020-02-28] MEDS: cefTRIAXone 1GM/50ML D5W 50 ML IV SCH (09:18)
[2020-02-28] MEDS ORDERED: SILVER SULFADIAZINE 1 % TOPICAL CREAM 50GM TOP SCH ×2 (10:00)
[2020-02-28] MEDS ORDERED: CILOSTAZOL 100 MG TAB PO SCH (10:00)
[2020-02-28] MEDS: ACETAMINOPHEN 325 MG TAB PO PRN (10:01)
--- NOTE | 2020-02-28 10:35 | NUR ---
10:35-RECEIVED PT TO PACU A TELE HOLD FROM ER. PT CONNECTED TO MONITORING EQUIPMENT V/S STABLE. NO S/S OF DISTRESS NOTED. ABDOMEN SOFT. QUINN TO GRAVITY PATENT/DRAINING. PER GURPREET REVELES, AM PO MEDS NOT GIVEN THIS MORNING. WILL CONTINUE TO MONITOR.
[2020-02-28 10:43] VITALS: BP 146/45
[2020-02-28] MEDS: busPIRone HCL 10 MG TAB PO SCH ×2 (11:24→21:56)
[2020-02-28] MEDS: ASPirin-EC 81 mg tab PO SCH (11:25)
[2020-02-28] MEDS: CLOPIDOGREL BISULFATE 75 MG TAB PO SCH (11:26)
[2020-02-28] MEDS: MEMANTINE HCL 5 MG TAB PO SCH ×2 (11:26→21:57)
[2020-02-28] MEDS: risperiDONE 1 MG TAB PO SCH (11:28)
[2020-02-28 11:29] VITALS: BP 131/79
[2020-02-28] MEDS: METOPROLOL SUCCINATE XL 50 MG TAB PO SCH (11:31)
[2020-02-28] MEDS: ENOXAPARIN SOD 40 MG/0.4 ML SYRINGE SC SCH (11:32)
--- NOTE | 2020-02-28 11:35 | NUR ---
DR. Eduardo KIRBY AT BEDSIDE IN PACU, NOTIFIED RADIOLODY CALLED TO REPORT PT HAS RESIDUAL WIRES IN BODY AND ARE UNABLE TO DO MRI. CANCEL MRI PER .
--- NOTE | 2020-02-28 11:47 | NUR ---
11:47-12:17-PT MONITORED BY SHER REVELES.
--- NOTE | 2020-02-28 12:09 | NUR ---
DR. VILLAFUERTE AT THE BEDSIDE
[2020-02-28] MEDS ORDERED: IOHEXOL 300 MG/ML 100ML BOTTLE IJ ONE ×2 (12:29→13:07)
--- NOTE | 2020-02-28 13:01 | NUR ---
PER PTS SON FLORIDALMA, LAST TIME PT TOOK METFORMIN WAS YESTERDAY 02/27/20 IN THE MORNING.
--- NOTE | 2020-02-28 13:10 | NUR ---
PT TRANSPORTED TO CT SCAN WITHOUT INCIDENT. PT TOLERATED PROCEDURE WELL AND WITHOUT INCIDENT. PT DENIED PAIN OR DISCOMFORT.
--- NOTE | 2020-02-28 13:49 | NUR ---
PT SITTING UP EATING LUNCH, PT REPORTS SHE IS COMFORTABLE. NO S/S OF DISTRESS NOTED. WILL CONTINUE TO MONITOR.
[2020-02-28] MEDS: PANTOPRAZOLE 40 MG TAB PO SCH (13:51)
[2020-02-28 14:12] LABS: Alcohol, Urine < 3.0 mg/dL (0-10); Amphetamine Screen, Urine NEGATIVE (NEGATIVE); Barbiturate Scree,Urine NEGATIVE (NEGATIVE); Benzodiazephine Screen, Urine NEGATIVE (NEGATIVE); Cannabinoid Screen, Urine NEGATIVE (NEGATIVE); Cocaine Screen, Urine NEGATIVE (NEGATIVE); Opiate Scree,Urine NEGATIVE (NEGATIVE); Phencyclidine Screen, Urine NEGATIVE (NEGATIVE); Urine Bacteria FEW /hpf (None Seen); Urine Blood 3+ /uL (Negative); Urine Budding Yeast FEW /hpf (None Seen); Urine Mucus FEW (None Seen); Urine Specific Gravity 1.013 (1.001-1.035); Urine WBC 8 /hpf (0 - 5)
--- NOTE | 2020-02-28 14:50 | NUR ---
REPORT GIVEN TO LEW DENG RN (COVERING FOR LAURY Bob) INFORMED OF RADIOLOGY FORM RE: METFORMIN POST CT SCAN. ALL QUESTIONS/CONCERNS ADDRESSED.
[2020-02-28 15:00] VITALS: BP 133/38
--- NOTE | 2020-02-28 15:05 | NUR ---
15:05-PT TRANSPORTED TO FLOOR ON CARDIAC/TELE MONITOR IN STABLE CONDITION AND WITHOUT INCIDENT. NO S/S OF DISTRESS NOTED. BED LOW, ALARM ON, CALL ARCINIEGA WITHIN REACH. COVERING RN KRISHNA. TRINI AND OTHER DRIVER EDUCATION ROAD INSTRUCTOR AT BEDSIDE. PT CONNECTED TO O2 2LNC. ALL PERSONAL BELONGINGS WITH PT INCLUDING HEARING AIDS X2, VERIFIED WITH PT. NO INCIDENCES TO REPORT. Addendum: 02/28/20 at 1546 by Patito Sanders RN RADIOLOGY FORM RE: METFORMIN GIVEN TO LEW REVELES.
--- NOTE | 2020-02-28 15:46 | NUR ---
15:46-PTS SON BEVERLY UPDATED ON PT STATUS AND WHAT ROOM PT WENT TO. BEVERLY ALSO INFORMED OF FORM HE WILL NEED TO SIGN RADIOLOGY FORM RE:METFORMIN POST CT SCAN. ALL QUESTIONS/CONCERNS ADDRESSED.
[2020-02-28 16:24] VITALS: BP 136/77
[2020-02-28 17:34] LABS: Basophils # (auto) 0.1 10 ^3/uL (0-0.2); Eosinophils # (auto) 0.2 10 ^3/uL (0-0.8); Lymphocytes # (auto) 1.5 10 ^3/uL (0.4-5.4); Lymphocytes % (auto) 20.3 % (10.0-50.0); Monocytes # (auto) 0.6 10 ^3/uL (0-1.3); Neutrophils # (auto) 5.1 10 ^3/uL (1.6-8.6)
[2020-02-28 17:36] LABS: Basophils % (auto) 1.4 % (0.0-2.0); Eosinophils % (auto) 2.1 % (0.0-7.0); Hematocrit 33.3 % (36.0-46.0); Hemoglobin 10.7 g/dL (12.2-16.2); Mean Corpuscular Hemoglobin 26.3 pg (28.0-32.0); Mean Corpuscular Hgb Conc. 32.2 g/dL (32.0-36.0); Mean Corpuscular Volume 81.7 fL (80.0-100.0); Monocytes % (auto) 7.9 % (0.0-12.0); Neutrophils % (auto) 68.3 % (37.0-80.0); Platelet Count (auto) 304 10^3/uL (140-450); Red Blood Cells 4.08 10^6/uL (4.0-5.20); Red Cell Distribution Width 18.8 % (11.8-14.3); White Blood Cell 7.5 10^3/uL (4.4-10.8)
[2020-02-28 17:44] LABS: INR 0.99 (0.9-1.15); Partial Thromboplastin Time 24.5 sec (23.0-31.2)
[2020-02-28 17:47] LABS: Albumin 2.8 g/dL (3.4-5.0); Calcium 8.4 mg/dL (8.5-10.1); Potassium 3.8 mmol/L (3.5-5.1)
[2020-02-28 17:52] LABS: BUN/Creatinine Ratio 28.3; Bilirubin, Total 0.3 mg/dL (0.2-1.0); Cholesterol 107 mg/dL (< 200); HDL Cholesterol 59 mg/dL (40-59); LDL Cholesterol 45 mg/dL (< 100); Phosphorus 3.1 mg/dL (2.5-4.90); Triglycerides 89 mg/dL (< 150)
[2020-02-28 17:57] LABS: Folate (Folic Acid) 15.24 ng/mL (5.38-24)
[2020-02-28] MEDS: HYDROcodone-ACET 5/325MG TAB PO PRN (18:16)
--- NOTE | 2020-02-28 19:45 | NUR ---
assumed care. sitter at bedside, pt. awake, oriented to her name, no c/o pain, no sob.
[2020-02-28 21:47] VITALS: BP 138/69
[2020-02-28] MEDS ORDERED: DONEPEZIL HYDROCHLORIDE 5 MG TAB PO SCH (22:00)
[2020-02-28] MEDS ORDERED: traZODone HCL 50 MG TAB PO SCH (22:00)
[2020-02-28] MEDS ORDERED: ATORVASTATIN 20 MG TAB PO SCH ×2 (22:00→22:45)
[2020-02-28] MEDS ORDERED: LORazepam 2MG/ML-1ML VIAL IV PRN (22:45)
[2020-02-29 05:00] VITALS: BP 122/49
[2020-02-29] MEDS: busPIRone HCL 10 MG TAB PO SCH ×2 (05:48→14:31)
[2020-02-29] MEDS: HYDROcodone-ACET 5/325MG TAB PO PRN (05:49)
[2020-02-29] MEDS: InsuLIN REG 1unit/0.01ml Soln (100units/ml) SC SCH ×3 (06:04→17:00)
[2020-02-29] MEDS: ACCU-CHEK COMFORT CURVE STRIP VI SCH ×3 (06:06→17:00)
[2020-02-29 09:00] VITALS: BP 119/55
[2020-02-29] MEDS: risperiDONE 1 MG TAB PO SCH (09:37)
[2020-02-29] MEDS: cefTRIAXone 1GM/50ML D5W 50 ML IV SCH (09:37)
[2020-02-29] MEDS: PANTOPRAZOLE 40 MG TAB PO SCH (09:37)
[2020-02-29] MEDS: ASPirin-EC 81 mg tab PO SCH (09:37)
[2020-02-29] MEDS: ENOXAPARIN SOD 40 MG/0.4 ML SYRINGE SC SCH (09:37)
[2020-02-29] MEDS: CLOPIDOGREL BISULFATE 75 MG TAB PO SCH (09:37)
[2020-02-29] MEDS: METOPROLOL SUCCINATE XL 50 MG TAB PO SCH (09:38)
--- NOTE | 2020-02-29 10:05 | NUR ---
TELE PSYCH CONSULT REQUESTED.
--- NOTE | 2020-02-29 12:10 | NUR ---
assessment Patient is a 79 year old female who is confused. Per patients son Sebastián prior to admission patient lived home with him and functioned with his assistance. Per Sebastián he will transport patient home on discharge. Per Sebastián he called 911 due to increased confusion. Patient was just released from the hospital for UTI. Per Sebastián patient still has a UTI. Sebastián informed me patients PCP is Dr Sheehan. Patient has a fww and a cane for home use. Sebastián informed me he does not want [facility] health, he want [facility] health on discharge. Patient has a advanced directive and Sebastián is POA. I informed Sebastián I will continue to monitor and follow up as appropriate. Sebastián verbalized understanding and agreed to discharge plan back home. Addendum: 02/29/20 at 1215 by Karol BALDWIN Amended: Links added.
[2020-02-29 13:00] VITALS: BP 127/78
[2020-02-29] MEDS: SOD CHL 0.45% 1,000 ML IV SCH (13:27)
--- NOTE | 2020-02-29 14:00 | NUR ---
ELECTROENCEPHALOGRAM PT REFUSED EEG. PRIMARY RN JANNIE NOTIFIED.
--- NOTE | 2020-02-29 14:30 | NUR ---
PAGED DR. GILL FOR DISCHARGE CLEARANCE.
[2020-02-29] MEDS: ACETAMINOPHEN 325 MG TAB PO PRN (14:32)
--- NOTE | 2020-02-29 16:19 | NUR ---
DR. 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
--- NOTE | 2020-02-29 16:20 | NUR ---
PAGED DR. GILL FOR DISCHARGE CLEARANCE, WAITING FOR CALL BACK.
--- NOTE | 2020-02-29 16:29 | NUR ---
DR. GILL CALLED BACK, HE SAID HE WILL COME SEE THE PT.
[2020-02-29] MEDS ORDERED: CEPH-37 PO (17:39)
[2020-02-29] MEDS ORDERED: ESCI10TA PO (17:39)
[2020-02-29] MEDS ORDERED: MEM5T PO (17:39)
[2020-02-29] MEDS ORDERED: MUPI2OIN2 EACHNOSTRI (17:40)
--- NOTE | 2020-02-29 18:00 | NUR ---
PT SEEN BY DR. GILL, PT CLEARED FOR DISCHARGE.
--- NOTE | 2020-02-29 18:15 | NUR ---
Trevizo catheter dc'd Order to discontinue trevizo catheter. Trevizo dc'd with clean technique following deflation of balloon. Patient tolerated well with no complaints of pain. Continue care.
[2020-02-29 18:35] VITALS: BP 119/55
--- NOTE | 2020-02-29 19:05 | NUR ---
CARE ENDORSED TO ABDIRIZAK CULVER, PT WAITING FOR RIDE HOME.
--- NOTE | 2020-02-29 19:30 | NUR ---
Discharge instructions given as ordered. Encourage to follow up with PMD as instructed. All questions and concerns addressed. Patient verbalized understanding. Medication reconciliation form completed and copy given to patient. IV removed with catheter intact, pressure dressing applied, trevizo catheter removed by day RN. Telemetry unit returned to ICU. Patient taken to vehicle via wheelchair with all personal belongings, accompanied by staff. No distress noted at time of departure.
[2020-02-29] MEDS ORDERED: MUPIROCIN 2% OINT 15gm or 22gm EACHNOSTRI SCH (22:00)
[2020-03-01 05:06] LABS: RPR Non Reactive (Non Reactive)
== END 2020-02-29 19:30 | disposition home health service (06) | DRG 689 ==
LOC: EDBD 16:16 → ER 16:16 → TELE 16:17 → TELE-WESTW 02-28 15:30
PROVIDERS: ADMIT Hospitalist; ATTEND Internal Medicine
DX: N39.0 Urinary tract infection, site not specified (principal); G92 Toxic encephalopathy; F05 Delirium due to known physiological condition; E44.0 Moderate protein-calorie malnutrition; F23 Brief psychotic disorder; G30.1 Alzheimer's disease with late onset; F02.80 Dementia in other diseases classified elsewhere, unspecified severity, without behavioral disturbance, psychotic disturbance, mood disturbance, and anxiety; E86.0 Dehydration; R62.7 Adult failure to thrive; F01.50 Vascular dementia, unspecified severity, without behavioral disturbance, psychotic disturbance, mood disturbance, and anxiety; F41.9 Anxiety disorder, unspecified; F32.9 Major depressive disorder, single episode, unspecified; E78.5 Hyperlipidemia, unspecified; I50.9 Heart failure, unspecified; I11.0 Hypertensive heart disease with heart failure; E11.51 Type 2 diabetes mellitus with diabetic peripheral angiopathy without gangrene; E27.8 Other specified disorders of adrenal gland; F17.200 Nicotine dependence, unspecified, uncomplicated; D64.9 Anemia, unspecified; J44.9 Chronic obstructive pulmonary disease, unspecified; I25.10 Atherosclerotic heart disease of native coronary artery without angina pectoris; K57.30 Diverticulosis of large intestine without perforation or abscess without bleeding; Z22.322 Carrier or suspected carrier of Methicillin resistant Staphylococcus aureus; Z98.61 Coronary angioplasty status; Z90.710 Acquired absence of both cervix and uterus; Z79.02 Long term (current) use of antithrombotics/antiplatelets; Z79.82 Long term (current) use of aspirin; Z79.899 Other long term (current) drug therapy; Z80.0 Family history of malignant neoplasm of digestive organs; Z82.49 Family history of ischemic heart disease and other diseases of the circulatory system; Z85.05 Personal history of malignant neoplasm of liver; Z83.3 Family history of diabetes mellitus; Z90.49 Acquired absence of other specified parts of digestive tract; Z86.73 Personal history of transient ischemic attack (TIA), and cerebral infarction without residual deficits; Z88.5 Allergy status to narcotic agent; Z88.2 Allergy status to sulfonamides; Z68.30 Body mass index [BMI] 30.0-30.9, adult
CPT/HCPCS: 36415; 74177; 80053; 80061; 80307; 81001; 82607; 82746; 82962; 83036; 83735; 84100; 84443; 85025; 85610; 85730; 86592; 87040; 87081; 87086; 93005; G0378; J0696; J1815; J2405

== ENCOUNTER 2020-03-04 12:08 | Emergency (ER) | payer BC ==
[~2020-03-04] VITALS: Ht 157.5 cm; Wt 59.0 kg
[~2020-03-04 12:08] MED LIST changes: +CEPH-37 PO; +ESCI10TA PO; -LEVO500T21 PO; -METF-372 PO; +MUPI2OIN2 EACHNOSTRI; -SILV1CRE82 TOP
[2020-03-04] MEDS ORDERED: SODIUM CHLORIDE 0.9% 500 ML IV ONE (12:27)
[2020-03-04 13:25] LABS: Basophils # (auto) 0.1 10 ^3/uL (0-0.2); Eosinophils # (auto) 0.1 10 ^3/uL (0-0.8); Eosinophils % (auto) 1.2 % (0.0-7.0); Hematocrit 31.1 % (36.0-46.0); Hemoglobin 9.9 g/dL (12.2-16.2); Lymphocytes % (auto) 11.6 % (10.0-50.0); Mean Corpuscular Hemoglobin 26.2 pg (28.0-32.0); Mean Corpuscular Hgb Conc. 31.9 g/dL (32.0-36.0); Mean Corpuscular Volume 82.1 fL (80.0-100.0); Monocytes # (auto) 0.6 10 ^3/uL (0-1.3); Monocytes % (auto) 7.3 % (0.0-12.0); Neutrophils # (auto) 6.8 10 ^3/uL (1.6-8.6); Neutrophils % (auto) 78.9 % (37.0-80.0); Platelet Count (auto) 290 10^3/uL (140-450); Red Blood Cells 3.79 10^6/uL (4.0-5.20); Red Cell Distribution Width 18.6 % (11.8-14.3); White Blood Cell 8.6 10^3/uL (4.4-10.8)
[2020-03-04 13:37] LABS: Urine Bacteria NONE SEEN /hpf (None Seen); Urine Blood 2+ /uL (Negative); Urine Budding Yeast MODERATE /hpf (None Seen); Urine Mucus FEW (None Seen); Urine Specific Gravity 1.033 (1.001-1.035); Urine WBC 85 /hpf (0 - 5); Urine WBC Clumps PRESENT /hpf (None Seen)
[2020-03-04 13:42] LABS: Albumin 2.8 g/dL (3.4-5.0); Calcium 8.5 mg/dL (8.5-10.1); Potassium 3.7 mmol/L (3.5-5.1)
[2020-03-04 13:45] LABS: BUN/Creatinine Ratio 25.7; Bilirubin, Total 0.4 mg/dL (0.2-1.0); Total Protein 5.8 g/dL (6.4-8.2)
[2020-03-04] MEDS ORDERED: cefTRIAXone 1GM/50ML D5W 50 ML IV ONE (14:30)
[2020-03-04 15:33] LABS: Lactic Acid w/Reflex 2.7 mmol/L (0.4-2.0)
[2020-03-04 16:58] VITALS: BP 125/66
== END 2020-03-04 16:58 | disposition home or self-care (01) ==
LOC: ER 12:08 → EDBD 12:08 → ER 16:58
DX: N39.0 Urinary tract infection, site not specified (principal); R53.1 Weakness; F41.9 Anxiety disorder, unspecified; I11.0 Hypertensive heart disease with heart failure; I50.9 Heart failure, unspecified; I25.2 Old myocardial infarction; F32.9 Major depressive disorder, single episode, unspecified; G30.9 Alzheimer's disease, unspecified; F02.80 Dementia in other diseases classified elsewhere, unspecified severity, without behavioral disturbance, psychotic disturbance, mood disturbance, and anxiety; Z87.440 Personal history of urinary (tract) infections; Z98.61 Coronary angioplasty status; Z79.899 Other long term (current) drug therapy; Z88.2 Allergy status to sulfonamides; Z88.5 Allergy status to narcotic agent
CPT/HCPCS: 36415; 71045; 80053; 81001; 83605; 85025; 87040; 93005; 96365; 96366; 99285; J0696; J7030